=== PATIENT | male | born 1940 | race Caucasian/White ===

== ENCOUNTER 2017-03-19 23:49 | Emergency (ER) | payer MEDICARE ==
--- NOTE | 2017-03-20 00:01 | ED Physician Documentation ---
PD HPI ABD PAIN - Stated complaint Stated Complaint: ABD PX,DIARRHEA - Chief complaint Chief Complaint: Resp - History obtained from History obtained from: Patient, Family - History of Present Illness Timing - onset: Yesterday Timing - details: Gradual onset, Waxing and waning Quality: Aching Location: All over / everywhere Improved by: Other (no ameliorating factors) Worsened by: Other (no apparent exacerbating factors) Similar symptoms before: Has not had sx before Recently seen: Not recently seen - Additional information Additional information: Patient is visiting from [place]. C/O vomiting, generalized myalgias, dyspnea x 1-2 days. Tonight when he tried to get up to use the bathroom, he was unable to do so without assistance due to generalized weakness. Review of Systems Constitutional: reports: Myalgias. denies: Fever, Chills, Sweats Eyes: reports: Reviewed and negative Ears: reports: Reviewed and negative Nose: reports: Reviewed and negative Throat: reports: Reviewed and negative Cardiac: reports: Reviewed and negative Respiratory: reports: Dyspnea. denies: Cough (patient denies cough, although family says he has been coughing x 1-2 days) GI: reports: Nausea, Vomiting. denies: Abdominal Pain, Abdominal Swelling : reports: Reviewed and negative Skin: reports: Reviewed and negative Musculoskeletal: reports: Reviewed and negative Neurologic: reports: Generalized weakness. denies: Focal weakness, Numbness, Confused, Altered mental status, Headache PD PAST MEDICAL HISTORY - Past Medical History Past Medical History: Yes Cardiovascular: Hypertension Endocrine/Autoimmune: Type 1 diabetes - Past Surgical History Past Surgical History: No - Present Medications Home Medications: Ambulatory Orders Medication Instructions Recorded Confirmed Acetaminophen [Tylenol Extra 1,000 mg PO BID 03/20/17 03/20/17 Strength] Hydrochlorothiazide 1 tab PO DAILY 03/20/17 03/20/17 Insulin Glargine [Lantus] 22 units SQ BID 03/20/17 03/20/17 Insulin Lispro [Humalog] 5 - 7 unit SQ BID 03/20/17 03/20/17 Metformin HCl 500 mg PO BID 03/20/17 03/20/17 Metoprolol Succinate [Toprol Xl] 1 tab PO QPM 03/20/17 03/20/17 - Allergies Allergies/Adverse Reactions: Allergies Allergy/AdvReac Type Severity Reaction Status Date / Time morphine Allergy Unknown Verified 08/17/17 23:59 Penicillins Allergy Unknown Verified 03/19/17 23:59 - Living Situation Living Arrangement: reports: At home PD ED PE NORMAL - Vitals Vital signs reviewed: Yes - General General: Alert and oriented X 3, Well developed/nourished, Other (generally does not appear to be in apparent acute distress, except periodically he becomes restless and says he has aching discomfort diffusely ("all of my muscles ", per patient)) - HEENT HEENT: PERRL, EOMI, Moist mucous membranes - Neck Neck: Supple, no meningeal sign - Cardiac Cardiac: No murmur, No gallop, No rub - Respiratory Respiratory: No respiratory distress, Clear bilaterally - Abdomen Abdomen: Normal bowel sounds, Soft, Non tender, Non distended - Derm Derm: Normal color, Warm and dry - Extremities Extremities: No edema - Neuro Neuro: Alert and oriented X 3, 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, No motor deficit, No sensory deficit, Normal speech PD ED PE EXPANDED - Cardiac Cardiac: Irregularly irregular Results - Vitals Vitals: Vital Signs - 24 hr 03/19/17 03/20/17 03/20/17 23:52 00:17 00:19 Temperature 36.4 C L Heart Rate 87 90 Respiratory 20 22 Rate Blood Pressure 78/56 L 80/54 L 82/59 L O2 Saturation 99 100 03/20/17 03/20/17 03/20/17 00:31 00:39 00:55 Temperature Heart Rate 74 87 98 Respiratory 16 20 20 Rate Blood Pressure 76/60 L 86/60 L 73/62 L O2 Saturation 96 98 Oxygen O2 Source Room air - EKG (time done) #1 Rate: Rate (enter#) (91) Rhythm: Atrial fibrillation [place]: LAD QRS: Normal Ischemia: ST elevation c/w ischemia (aVR), ST depression (V3-V6, I), Q waves (II , III, aVF) #2 Rate: Rate (enter#) (85) Rhythm: Atrial fibrillation [place]: LAD QRS: Normal Ischemia: ST elevation c/w ischemia (aVR), ST depression (V3-V6, I), Q waves (II , III, aVF) Compare to prior EKG: Unchanged from prior EKG - Labs Labs: Laboratory Tests 03/20/17 03/20/17 03/20/17 00:05 00:05 00:05 WBC 15.7 H RBC 3.98 L Hgb 12.8 L Hct 37.7 L MCV 94.7 H MCH 32.2 H MCHC 34.0 RDW 12.8 Plt Count 326 MPV 7.4 Neut # 12.1 H Lymph # 1.9 [place] # 1.5 H Eos # 0.2 Baso # 0.0 Absolute Nucleated RBC 0.00 Nucleated RBCs 0.0 PT 13.4 H INR 1.2 APTT 24.3 L Sodium 125 L Potassium 4.5 Chloride 87 L Carbon Dioxide 18 L Anion Gap 20.0 H BUN 18 Creatinine 1.4 H Estimated GFR (MDRD) 49 L Glucose 322 H POC Whole Bld Glucose Lactic Acid Calcium 9.4 Total Bilirubin 1.4 H AST 97 H ALT 60 Alkaline Phosphatase 146 H Troponin I B-Natriuretic Peptide Total Protein 6.7 Albumin 3.5 Globulin 3.2 Albumin/Globulin Ratio 1.1 Lipase 17 L Urine Color Urine Clarity Urine pH Ur Specific [place] Urine Protein Urine Glucose (UA) Urine Ketones Urine Occult Blood Urine Nitrite Urine Bilirubin Urine Urobilinogen Ur Leukocyte Esterase Ur Microscopic Review Urine Culture Comments 03/20/17 03/20/17 03/20/17 00:05 00:05 00:06 WBC RBC Hgb Hct MCV MCH MCHC RDW Plt Count MPV Neut # Lymph # [place] # Eos # Baso # Absolute Nucleated RBC Nucleated RBCs PT INR APTT Sodium Potassium Chloride Carbon Dioxide Anion Gap BUN Creatinine Estimated GFR (MDRD) Glucose POC Whole Bld Glucose 344 H Lactic Acid Calcium Total Bilirubin AST ALT Alkaline Phosphatase Troponin I 3.47 H* B-Natriuretic Peptide 444 H Total Protein Albumin Globulin Albumin/Globulin Ratio Lipase Urine Color Urine Clarity Urine pH Ur Specific [place] Urine Protein Urine Glucose (UA) Urine Ketones Urine Occult Blood Urine Nitrite Urine Bilirubin Urine Urobilinogen Ur Leukocyte Esterase Ur Microscopic Review Urine Culture Comments 03/20/17 03/20/17 00:10 00:19 WBC RBC Hgb Hct MCV MCH MCHC RDW Plt Count MPV Neut # Lymph # [place] # Eos # Baso # Absolute Nucleated RBC Nucleated RBCs PT INR APTT Sodium Potassium Chloride Carbon Dioxide Anion Gap BUN Creatinine Estimated GFR (MDRD) Glucose POC Whole Bld Glucose Lactic Acid 7.9 H* Calcium Total Bilirubin AST ALT Alkaline Phosphatase Troponin I B-Natriuretic Peptide Total Protein Albumin Globulin Albumin/Globulin Ratio Lipase Urine Color YELLOW Urine Clarity CLEAR Urine pH 6.0 Ur Specific [place] 1.025 Urine Protein TRACE Urine Glucose (UA) NEGATIVE Urine Ketones 15 H Urine Occult Blood NEGATIVE Urine Nitrite NEGATIVE Urine Bilirubin NEGATIVE Urine Urobilinogen 0.2 (NORMAL) Ur Leukocyte Esterase NEGATIVE Ur Microscopic Review NOT INDICATED Urine Culture Comments NOT INDICATED - Rads (name of study) chest xray Radiology: Prelim report reviewed, See rad report PD MEDICAL DECISION MAKING - ED course Complexity details: reviewed results, re-evaluated patient, considered differential, d/w patient, d/w family ED course: Patient arrived hypotensive and remained hypotensive during ED stay despite IV fluids (over 2 liters NS during [facility] ED stay). EKG reveals ST elevation aVR with diffuse ST depression, and troponin is elevated (>3). During ED stay, he continued to deny any chest pain/pressure/tightness/squeezing. I discussed the case with Dr. Rivera at [facility], accepts for transfer to [facility]. Departure - Departure Disposition: 02 Transfer Acute Care Hosp Clinical Impression: Myocardial infarction Qualifiers: Myocardial infarction ST status: ST elevation myocardial infarction Involved coronary artery: unspecified coronary artery Qualified Code(s): I21.3 - ST elevation (STEMI) myocardial infarction of unspecified site Atrial fibrillation Qualifiers: Atrial fibrillation type: unspecified Qualified Code(s): I48.91 - Unspecified atrial fibrillation Condition: Stable Discharge Date/Time: 03/20/17 01:20
[2017-03-20] MEDS ORDERED: SODIUM CHLORIDE 0.9% 1,000 ML IV ONE ×2 (00:12→00:14)
[2017-03-20 00:21] LABS: BASOPHILS % (AUTO) 0.2 %; EOSINOPHILS # (AUTO) 0.2 10^3/uL (0.0-0.7); EOSINOPHILS % (AUTO) 1.5 %; HCT - HEMATOCRIT 37.7 % (42.0-52.0); HGB - HEMOGLOBIN 12.8 g/dL (14.0-18.0); LYMPHOCYTES # (AUTO) 1.9 10^3/uL (1.5-3.5); MEAN CORPUSCULAR HEMOGLOBIN 32.2 pg (27.0-31.0); MEAN CORPUSCULAR VOLUME 94.7 fL (80.0-94.0); MEAN PLATELET VOLUME 7.4 fL (7.4-11.4); MONOCYTES # (AUTO) 1.5 10^3/uL (0.0-1.0); MONOCYTES % (AUTO) 9.5 %; NEUTROPHILS # (AUTO) 12.1 10^3/uL (1.5-6.6); NEUTROPHILS % (AUTO) 76.8 %; RED BLOOD COUNT 3.98 10^6/uL (4.70-6.10); RED CELL DISTRIBUTION WIDTH 12.8 % (12.0-15.0); UNCORRECTED WHITE BLOOD COUNT 15.7 x10^3/uL; WHITE BLOOD COUNT 15.7 x10^3/uL (4.8-10.8)
[2017-03-20 00:24] LABS: BILIRUBIN,URINE NEGATIVE (NEGATIVE)
[2017-03-20 00:28] LABS: INR 1.2 (0.8-1.2); PT - PROTHROMBIN TIME 13.4 secs (9.9-12.6)
[2017-03-20 00:34] LABS: ALBUMIN/GLOBULIN RATIO 1.1 (1.0-2.2); BILIRUBIN,TOTAL 1.4 mg/dL (0.2-1.0); CALCIUM 9.4 mg/dL (8.5-10.3); CREATININE 1.4 mg/dL (0.6-1.2); POTASSIUM 4.5 mmol/L (3.5-5.0); TOTAL PROTEIN 6.7 g/dL (6.7-8.2)
[2017-03-20 00:35] LABS: PARTIAL THROMBOPLASTIN TIME 24.3 secs (24.9-33.3)
[2017-03-20] MEDS ORDERED: HEPARIN 25,000 UNITS/500 ML 500 ML IV STA (00:50)
[2017-03-20] MEDS ORDERED: CLOPIDOGREL 300 MG TABLET PO STA (00:51)
[2017-03-20] MEDS ORDERED: HEPARIN 5,000 UNIT/ML VIAL IVP STA (00:52)
[2017-03-20] MEDS ORDERED: SODIUM CHLORIDE 0.9% 1,000 ML IV STA (00:52)
[2017-03-20 00:55] VITALS: BP 73/62
--- NOTE | 2017-03-20 01:01 | XRAY Preliminary Report ---
Exam: XR Chest 1 View IMPRESSION: 1. Mild cardiomegaly with pulmonary vascular congestion and possible pulmonary edema. 2. Right basilar atelectasis or infiltrate. [id number]
--- NOTE | 2017-03-20 01:03 | XRAY Report ---
EXAM: CHEST RADIOGRAPHY EXAM DATE: 03/20/2017 12:46 AM. CLINICAL HISTORY: Hypotension. COMPARISON: None. TECHNIQUE: 1 view. FINDINGS: Lungs/Pleura: Pulmonary vascular congestion. Possible pulmonary edema. Right basilar atelectasis or i nfiltrate. No pleural effusion seen. No pneumothorax. Mediastinum: Mild cardiomegaly. Aortic atherosclerosis. Other: Surgical clips in the neck. Old right rib fractures. IMPRESSION: 1. Mild cardiomegaly with pulmonary vascular congestion and possible pulmonary edema. 2. Right basilar atelectasis or infiltrate. [facility] Referring Provider Line: [phone] SITE ID: [id number]
[2017-03-20] MEDS ORDERED: CLOPIDOGREL 300 MG TABLET PO ONE (01:04)
[2017-03-20] MEDS ORDERED: HEPARIN 5,000 UNIT/ML VIAL ONE (01:04)
[2017-03-20] MEDS ORDERED: HEPARIN 25,000 UNITS/500 ML 500 ML IV ONE (01:04)
[2017-03-20 01:10] LABS: UA CHARGE (STRIP ONLY) YES; UR CULTURE IF IND NOT INDICATED
== END 2017-03-20 01:20 | disposition short-term general hospital (02) ==
LOC: ED 23:49
DX: I21.3 ST elevation (STEMI) myocardial infarction of unspecified site (principal); I48.91 Unspecified atrial fibrillation; E10.9 Type 1 diabetes mellitus without complications; I10 Essential (primary) hypertension; I44.4 Left anterior fascicular block; Z79.84 Long term (current) use of oral hypoglycemic drugs
CPT/HCPCS: 36415; 51702; 71010; 80053; 81003; 83605; 83690; 83880; 84484; 85025; 85610; 85730; 93005; 96361; 96374; 99285; A9270; 81001; 87086

== ENCOUNTER 2017-03-20 01:19 | Outpatient (CLI) | payer MEDICARE | END 2017-03-20 01:20 | disposition short-term general hospital (02) | LOC: EMS 01:19 | PROVIDERS: ATTEND Surgery | DX: I21.3 ST elevation (STEMI) myocardial infarction of unspecified site (principal) | CPT/HCPCS: A0425; A0427 ==